=== PATIENT | female | born 1970 | race Caucasian/White ===

== ENCOUNTER 2018-02-01 17:26 | Emergency (ER) | payer OTHER ==
[2018-02-01] MEDS ORDERED: NORMAL SALINE 1000 ML 1,000 ML IV ONE (18:12)
--- NOTE | 2018-02-01 18:16 | ER Document Report ---
ED Medical Screen (RME) - General Chief Complaint: Lower Abdominal Pain Stated Complaint: ABDOMINAL PAIN Notes: 47-year-old female presents emergency department with complaints of multiple syncopal episodes over the last 2 weeks. Patient states that her first syncopal episode occurred 2 weeks ago and she went to the emergency department for an evaluation. Patient states that she was diagnosed with dehydration and discharged home. Patient states that she passed out again yesterday. She went to see her primary care physician today because she has been feeling lightheaded and was concerned that she would pass out again. Her primary care physician noticed some pain to palpation in the abdomen. She was concerned for possible ectopic and sent her to the emergency department for an evaluation. Patient denies any abdominal pain unless the abdomen is being pressed. She denies any nausea, vomiting, diarrhea, constipation, dysuria, hematuria. I have greeted and performed a rapid initial assessment of this patient. A comprehensive ED assessment and evaluation of the patient, analysis of test results and completion of the medical decision making process will be conducted by additional ED providers. PHYSICAL EXAMINATION: GENERAL: Well-appearing, well-nourished and in no acute distress. HEAD: Atraumatic, normocephalic. EYES: Pupils equal round extraocular movements intact, conjunctiva are normal. ENT: Nares patent NECK: Normal range of motion LUNGS: No respiratory distress Musculoskeletal: Normal range of motion NEUROLOGICAL: Normal speech, normal gait. PSYCH: Normal mood, normal affect. SKIN: Warm, Dry, normal turgor, no rashes or lesions noted. TRAVEL OUTSIDE OF THE [place] IN LAST 30 DAYS: No - Related Data Allergies/Adverse Reactions: shellfish derived Allergy (Verified 02/01/18 17:28) IVP dye Allergy (Uncoded 02/01/18 17:28) Past Medical History - Social History Chew tobacco use (# tins/day): No Frequency of alcohol use: None Drug Abuse: None Renal/ Medical History: Denies: Hx Peritoneal Dialysis Physical Exam - Vital signs Vitals: Temp Pulse Resp BP Pulse Ox 98.8 F 77 16 121/86 H 99 02/01/18 17:38 02/01/18 17:38 02/01/18 17:38 02/01/18 17:38 02/01/18 17:38 Course - Vital Signs Vital signs: Temp Pulse Resp BP Pulse Ox 98.8 F 77 16 121/86 H 99 02/01/18 17:38 02/01/18 17:38 02/01/18 17:38 02/01/18 17:38 02/01/18 17:38
--- NOTE | 2018-02-01 18:58 | RADIOLOGY REPORT (SQ) ---
EXAM DESCRIPTION: CHEST SINGLE VIEW COMPLETED DATE/TIME: 02/01/2018 6:35 pm REASON FOR STUDY: chest pain COMPARISON: None. EXAM PARAMETERS: NUMBER OF VIEWS: One view. TECHNIQUE: Single frontal radiographic view of the chest acquired. RADIATION DOSE: NA LIMITATIONS: None. FINDINGS: LUNGS AND PLEURA: No opacities, masses or pneumothorax. No pleural effusion. MEDIASTINUM AND HILAR STRUCTURES: No masses. Contour normal. HEART AND VASCULAR STRUCTURES: Heart normal in size. Normal vasculature. BONES: No acute findings. HARDWARE: None in the chest. Metallic clips in the right upper quadrant the abdomen. OTHER: No other significant finding. IMPRESSION: NO ACUTE RADIOGRAPHIC FINDING IN THE CHEST. TECHNICAL DOCUMENTATION: JOB ID: [id number] [employer]- All Rights Reserved Reading location - IP/workstation name: [email or web address]
[2018-02-01 19:00] LABS: ABSOLUTE BASOPHILS # (AUTO) 0.1 10^3/uL (0.0-0.2); ABSOLUTE EOSINOPHILS # (AUTO) 0.1 10^3/uL (0.0-0.6); ABSOLUTE LYMPHOCYTES (AUTO) 2.6 10^3/uL (0.5-4.7); ABSOLUTE MONOCYTES (AUTO) 0.6 10^3/uL (0.1-1.4); BASOPHILS % (AUTO) 1.1 % (0-2); EOSINOPHILS % (AUTO) 1.2 % (0-6); HEMATOCRIT 38.6 % (36.0-47.0); HEMOGLOBIN 13.4 g/dL (12.0-15.5); LYMPHOCYTES % (AUTO) 27.4 % (13-45); MEAN CORPUSCULAR HEMOGLOBIN 30.7 pg (27.0-33.4); MEAN CORPUSCULAR HGB CONC 34.6 g/dL (32.0-36.0); MEAN CORPUSCULAR VOLUME 89 fl (80-97); PLATELET COUNT 298 10^3/uL (150-450); RED BLOOD COUNT 4.35 10^6/uL (3.72-5.28); RED CELL DISTRIBUTION WIDTH 13.2 % (11.5-14.0); SEGMENTED NEUTROPHILS % (AUTO) 64.3 % (42-78); TOTAL CELLS COUNTED % (AUTO) 100 %; WHITE BLOOD COUNT 9.4 10^3/uL (4.0-10.5)
[2018-02-01 19:07] LABS: APPEARANCE,URINE SLIGHTLY-CLOUDY; BILIRUBIN,URINE NEGATIVE (NEGATIVE); COLOR,URINE YELLOW; GLUCOSE, URINE NEGATIVE (NEGATIVE); KETONES,URINE NEGATIVE (NEGATIVE); LEUKOCYTE ESTERASE,URINE TRACE (NEGATIVE); NITRITE,URINE NEGATIVE (NEGATIVE); PROTEIN,URINE NEGATIVE (NEGATIVE); URINE SPECIFIC GRAVITY 1.017
[2018-02-01 19:20] LABS: ALANINE AMINOTRANSFERASE 15 U/L (9-52); ALBUMIN 4.6 g/dL (3.5-5.0); ALKALINE PHOSPHATASE 59 U/L (38-126); ANION GAP 13 (5-19); ASPARTATE AMINO TRANSFERASE 25 U/L (14-36); BILIRUBIN,DIRECT 0.2 mg/dL (0.0-0.4); BILIRUBIN,TOTAL 0.5 mg/dL (0.2-1.3); BLOOD UREA NITROGEN 9 mg/dL (7-20); CALCIUM 9.6 mg/dL (8.4-10.2); CARBON DIOXIDE 29 mmol/L (22-30); CHLORIDE 101 mmol/L (98-107); GLUCOSE 96 mg/dL (75-110); SODIUM 143.2 mmol/L (137-145); TOTAL PROTEIN 7.9 g/dL (6.3-8.2)
--- NOTE | 2018-02-01 20:45 | EKG REPORT ---
SEVERITY:- NORMAL ECG - SINUS RHYTHM : Confirmed by: Soraida Schmitt MD 01-Feb-2018 20:43:33
--- NOTE | 2018-02-01 21:53 | ER Document Report ---
ED General - General Mode of Arrival: Ambulatory Information source: Patient TRAVEL OUTSIDE OF THE [place] IN LAST 30 DAYS: No <URBANO MCCORMICK - Last Filed: 02/02/18 01:09> <SHIRA MOLINA - Last Filed: 02/05/18 10:49> - General Chief Complaint: Lower Abdominal Pain Stated Complaint: ABDOMINAL PAIN Time Seen by Provider: 02/01/18 21:20 Notes: Patient is a 47-year-old female presenting to the emergency department complaining of multiple symptoms including syncope, nausea, vomiting, abdominal pain and diarrhea. 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 She states that she was outside walking when she began to feel lightheaded and nauseous and proceeded to "pass out". Patient states that she was unconscious for approximately 5 minutes. She states she presented to the emergency department in [facility] and she was given fluids and discharged home. She states since then she has been having intermittent lightheadedness and had a near syncopal episode today and a syncopal episode yesterday. She also complains of an episode of chest pain, generalized weakness, vomiting and diarrhea the last few days. She denies being on blood thinners, any recent trips, hospitalizations , a history of cancer, blood clots or family history of sudden or cancer. (URBANO MCCORMICK) - Related Data Allergies/Adverse Reactions: shellfish derived Allergy (Verified 02/01/18 17:28) IVP dye Allergy (Uncoded 02/01/18 17:28) Past Medical History - General Information source: Patient - Social History Smoking Status: Never Smoker Chew tobacco use (# tins/day): No Frequency of alcohol use: None Drug Abuse: None Family History: Reviewed & Not Pertinent Patient has suicidal ideation: No Patient has homicidal ideation: No <URBANO MCCORMICK - Last Filed: 02/02/18 01:09> Review of Systems - Review of Systems Constitutional: See HPI, Weakness EENT: No symptoms reported Cardiovascular: See HPI, Syncope, Lightheaded Respiratory: No symptoms reported Gastrointestinal: See HPI, Diarrhea, Nausea, Vomiting Genitourinary: No symptoms reported Female Genitourinary: No symptoms reported Musculoskeletal: No symptoms reported Skin: No symptoms reported Hematologic/Lymphatic: No symptoms reported Neurological/Psychological: No symptoms reported -: Yes All other systems reviewed and negative <URBANO MCCORMICK - Last Filed: 02/02/18 01:09> Physical Exam <URBANO MCCORMICK - Last Filed: 02/02/18 01:09> <JESSESHIRA - Last Filed: 02/05/18 10:49> - Vital signs Vitals: Temp Pulse Resp BP Pulse Ox 98.8 F 77 16 121/86 H 99 02/01/18 17:38 02/01/18 17:38 02/01/18 17:38 02/01/18 17:38 02/01/18 17:38 - Notes Notes: GENERAL: Alert, Appears fatigued. No acute distress. HEAD: Normocephalic, atraumatic. EYES: Pupils equal, round, and reactive to light. Extraocular movements intact. ENT: Oral mucosa mildly dry, tongue midline. NECK: Full range of motion. Supple. Trachea midline. LUNGS: Clear to auscultation bilaterally, no wheezes, rales, or rhonchi. No respiratory distress. HEART: Regular rate and rhythm. No murmurs, gallops, or rubs. ABDOMEN: Soft, RLQ tenderness to palpation, no guarding rigidity or rebound. Negative Rovsing's sign. Non-distended. Bowel sounds present in all 4 quadrants. EXTREMITIES: Moves all 4 extremities spontaneously. No edema, radial and dorsalis pedis pulses 2/4 bilaterally. No cyanosis. NEUROLOGICAL: Alert and oriented x3. Normal speech. Cranial nerves II through XII intact. Finger to nose testing intact. No pronator drift. PSYCH: Normal affect, normal mood. SKIN: Warm, dry, normal turgor. No rashes or lesions noted. (URBANO MCCORMICK) Course - Laboratory Result Diagrams: 02/01/18 18:28 02/01/18 18:28 <URBANO MCCORMICK - Last Filed: 02/02/18 01:09> - Laboratory Result Diagrams: 02/01/18 18:28 02/01/18 18:28 - Diagnostic Test Radiology reviewed: Image reviewed, Reports reviewed - EKG Interpretation by Vt EKG shows normal: Sinus rhythm Rate: Normal Rhythm: NSR <JESSESHIRA Damico - Last Filed: 02/05/18 10:49> - Re-evaluation Re-evalutation: 02/01/18 22:35 Patient's d-dimer negative with labs within normal limits are nonsignificant normal EKG and chest x-ray. Patient states he has been having intermittent lightheadedness over the 2 weeks but not vertiginous symptoms. She states that when she passed out 2 weeks ago she did feel nauseous and diaphoretic suggestive of vasovagal event. She was diagnosed with anxiety by her primary care doctor she has been having intermittent tingling going down both arms and shortness of breath. She has no history of sudden cardiac in the family she has no known medical problems does not take any medications on a daily basis and her test is negative. In regards to concern with right lower quadrant abdominal pain she is exhibiting no pain at this time with only mild if any pain with deep palpation on exam. Her symptoms are not suggestive of appendicitis or any other acute concerning pathology. D-dimer was performed due to her shortness of breath and her syncopal event that occurred 2 weeks ago. D-dimer negative with low probability Wells score effectively ruling out pulmonary embolism. 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 He states that she has been stressed more than normal due to work and life stressors. I discussed that all her labs within normal limits with no concerning findings. Provided work excuse for 3 days for patient rest and to recuperate to see if this helps with her symptoms. Return precautions provided (SHIRA MOLINA) - Vital Signs Vital signs: Temp Pulse Resp BP Pulse Ox 97.8 F 64 15 114/64 100 02/02/18 00:16 02/02/18 00:16 02/02/18 00:16 02/02/18 00:16 02/02/18 00:16 - Laboratory Laboratory results interpreted by me: 02/01/18 18:28 Urine Urobilinogen 4.0 H Ur Leukocyte Esterase TRACE H Discharge <URBANO MCCORMICK - Last Filed: 02/02/18 01:09> <SHIRA MOLINA - Last Filed: 02/05/18 10:49> - Discharge Clinical Impression: Dehydration Fatigue Qualifiers: Fatigue type: other Qualified Code(s): R53.83 - Other fatigue Condition: Good Disposition: HOME, SELF-CARE Forms: Return to Work Referrals: JUAN KOCH, WOOL SACKER [Primary Care Provider] - Follow up in 3-5 days Scribe Attestation: 02/05/18 10:49 I personally performed the services described in the documentation, reviewed and edited the documentation which was dictated to the scribe in my presence, and it accurately records my words and actions. (SHIRA MOLINA) Scribe Documentation - Scribe Written by Scribe:: Reilly Amaya, 02/01/2018 22:14 acting as scribe for :: Jesse <URBANO MCCORMICK - Last Filed: 02/02/18 01:09>
[2018-02-01] MEDS: NORMAL SALINE 1000 ML 1,000 ML IV PRN ×2 (22:53→22:54)
[2018-02-02 00:27] VITALS: BP 114/64
== END 2018-02-02 00:17 | disposition home or self-care (01) ==
LOC: ER 17:26
DX: E86.0 Dehydration (principal); R53.83 Other fatigue; R10.30 Lower abdominal pain, unspecified; R11.2 Nausea with vomiting, unspecified; R19.7 Diarrhea, unspecified; Z91.041 Radiographic dye allergy status; Z91.013 Allergy to seafood
CPT/HCPCS: 93005; 99284; 96360; 96361; 36415; 85025; 81025; 80053; 81001; 84484; 85379; 71045; 93010; J7030

== ENCOUNTER → 2018-07-06 | Outpatient (CLI) | payer OTHER ==
--- NOTE | 2018-07-06 11:45 | RADIOLOGY REPORT (SQ) ---
EXAM DESCRIPTION: WRIST LEFT 3 VIEWS COMPLETED DATE/TIME: 07/06/2018 11:17 am REASON FOR STUDY: LEFT WRIST PAIN M25.532 PAIN IN LEFT WRIST COMPARISON: None. NUMBER OF VIEWS: Three views. TECHNIQUE: AP, lateral, and oblique radiographic images acquired of the left wrist. LIMITATIONS: None. FINDINGS: MINERALIZATION: Normal. BONES: No acute fracture or dislocation. No worrisome bone lesions. Normal alignment. No significant osteophytes. JOINTS: No erosions. No tarsha-articular osteopenia. No chondrocalcinosis. SOFT TISSUES: No swelling. No calcifications. OTHER: No other significant finding. IMPRESSION: NEGATIVE STUDY OF THE LEFT WRIST. NO EXPLANATION FOR PAIN. TECHNICAL DOCUMENTATION: JOB ID: [id number] [employer]- All Rights Reserved Reading location - IP/workstation name: [email or web address]
== END ==
LOC: OD 11:05
PROVIDERS: ATTEND Nurse Practitioner Family
DX: M25.532 Pain in left wrist (principal)